=== PATIENT | male | born 1980 | race Caucasian/White ===

== ENCOUNTER 2025-08-27 22:57 | Emergency (ER) | payer MEDICAID ==
[~2025-08-27] VITALS: Ht 167.6 cm; Wt 77.1 kg
[2025-08-27 23:09] VITALS: O2SAT 98
[2025-08-28 00:04] LABS: BASOPHILS % 0.6 % (0.0-2.0); EOSINOPHILS % 11.1 % (0.0-5.0); HEMATOCRIT. 39.1 % (42.0-52.0); HEMOGLOBIN. 13.0 g/dL (14.0-18.0); LYMPHOCYTES % 27.7 % (20.0-50.0); MEAN PLATELET VOLUME 9.3 fl (7.4-10.4); MONOCYTES % 14.8 % (2.0-8.0); NEUTROPHILS % 45.8 % (40.0-76.0); PLATELET 151 x1000/uL (130-400); RED BLOOD CELL COUNT 4.44 mill/uL (4.7-6.1); RED CELL DISTRIBUTION WIDTH 13.9 % (11.6-14.6)
[2025-08-28 00:12] LABS: CREATININE 0.9 mg/dL (0.6-1.3); UREA NITROGEN BLOOD 15 mg/dL (9-23)
[2025-08-28 00:14] LABS: TROPONIN I HIGH SENSITIVITY 4 ng/L (3.0-53)
[2025-08-28 04:39] LABS: TROPONIN I HIGH SENSITIVITY 4 ng/L (3.0-53)
[2025-08-28 05:02] VITALS: BP 129/94; PULSE 60; RESP 13; TEMP 36.8; O2SAT 98
== END 2025-08-28 05:14 | disposition home or self-care (01) ==
LOC: ER 22:57
DX: R07.89 Other chest pain (principal); D72.819 Decreased white blood cell count, unspecified; I10 Essential (primary) hypertension
CPT/HCPCS: 36415; 71045; 80048; 84484; 85025; 93005; 99285